=== PATIENT | male | born 1995 | race Caucasian/White ===

== ENCOUNTER 2021-03-24 14:27 | Emergency (ER) | payer OTHER ==
[~2021-03-24] VITALS: Ht 175.3 cm; Wt 74.8 kg
[2021-03-24] MEDS ORDERED: IBUP-1955 PO (15:46)
[2021-03-24] MEDS ORDERED: CARI350T PO (15:46)
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
[2021-03-24 16:01] VITALS: BP 118/70
--- NOTE | 2021-03-24 16:02 | NUR ---
patient condition stable d/c home with instructions after care reviewed understood left er via self in stable condition.
== END 2021-03-24 16:04 | disposition home or self-care (01) ==
LOC: ER 14:35
DX: M26.601 Right temporomandibular joint disorder, unspecified (principal); Z98.890 Other specified postprocedural states
CPT/HCPCS: 70486-TC